=== PATIENT | female | born 1960 | race Caucasian/White ===

== ENCOUNTER → 2023-03-05 11:05 | Outpatient (CLI) | payer MEDICARE, OTHER, SELFPAY ==
--- NOTE | ~2023-03-05 | MR_ITS ---
MRI of the left shoulder Technique: Axial proton-density fat-sat images, coronal proton density fat-sat and T2 fat-sat images, and sagittal T1-weighted and T2 fat-sat images were acquired. Clinical History: Pain Findings: There is minimal AC joint degenerative change. Coracoclavicular, coracoacromial, and coraco humeral ligaments are intact. Supraspinatus and infraspinatus tendons are intact, without partial or full-thickness tear. Subscapul terence tendon is intact. Tendon of long head of the biceps is intact. No labral tear identified. Inferior glenohumeral ligament is intact. There is mild fluid distention of the subacromial/subdeltoi d bursa. No degenerative change or effusion of the glenohumeral joint. No muscle atrophy or edema. Impression: Mild subacromial/subdeltoid bursitis. No other significant findings. Reviewed, dictated and finalized at [facility]. Impression: Mild subacromial/subdeltoid bursitis. No other significant findings.
== END ==
PROVIDERS: PCP Family Medicine; Visit Provider Physician Assistant Surgical
DX: M25.512 Pain in left shoulder (principal); M75.52 Bursitis of left shoulder
CPT/HCPCS: 73221

== ENCOUNTER 2023-04-24 10:17 | Outpatient (CLI) | payer MEDICARE, OTHER, SELFPAY ==
--- NOTE | 2023-04-24 10:30 | ECG_ITS ---
Measurements Intervals [place] Rate: 69 P: 51 WV: 145 QRS: -33 QRSD: 90 T: 35 QT: 403 QTc: 433 Interpretive Statements SINUS RHYTHM MARKED LEFT AXIS DEVIATION [QRS AXIS < -30] NO PREVIOUS ECG AVAILABLE FOR COMPARISON Electronically Signed On 04-24-2023 14:13:31 CDT by Michel Vallejo M.D.
[2023-04-24 11:01] LABS: Anion Gap 6 mmol/L (8-16); Blood Urea Nitrogen 13 mg/dL (7-17); Calcium 9.4 mg/dL (8.4-10.2); Carbon Dioxide 34 mmol/L (22-30); Chloride 98 mmol/L (98-107); Estimated Glomerular Filt Rate > 60; Glucose 107 mg/dL (65-110); Potassium 3.5 mmol/L (3.4-5.0); Sodium 138 mmol/L (137-145)
== END 2023-04-24 10:18 | disposition home or self-care (01) ==
LOC: ANHSURGERY 10:23
PROVIDERS: Anesthesiology; PCP Family Medicine; Visit Provider Orthopaedic Surgery
DX: I10 Essential (primary) hypertension (principal); T50.2X5A Adverse effect of carbonic-anhydrase inhibitors, benzothiadiazides and other diuretics, initial encounter
CPT/HCPCS: 36415; 80048; 93005

== ENCOUNTER 2023-04-27 01:00 | Day surgery (SDC) | payer MEDICARE, OTHER, SELFPAY ==
[2023-04-20 15:41] VITALS: BMI 30.9
--- NOTE | 2023-04-20 15:49 | SUR.PREOP ---
Report to the Outpatient Waiting Room, entrance under the green pavilion located off [facility], at time _1000 on date _04/27/23 . Planned Procedure Time: __1200 . Time changes happen often and if your time is changed the preop area will call you the afternoon before. - You and your visitor will be asked to self-screen and do not enter if you have any COVID symptoms. - A mask is optional within the hospital at this time. Patients may have clear liquids (water, carbonated beverages, clear teas, apple juice) until 3 hours prior to surgery with a maximum of 20 ounces. - No food from midnight until time of surgery - Infants may have breast milk until 4 hours before surgery, formula 6 hours prior to surgery. - Children will be allowed to drink immediately following surgery. If applicable, please bring a bottle or sippy cup to assist with drinking. Juice, water, soda, and popsicles are readily available. For infants on formula, please bring formula the day of surgery. Pacifiers are allowed. Take the following medications with a SIP of water the morning of surgery: __AMLODIPINE DO NOT STOP ANY OF YOUR OTHER PRESCRIPTION MEDICATIONS PRIOR TO SURGERY ?EXCEPT THE FOLLOWING Medications to discontinue per physician ____VITAMINS Date to take last dose___04/24/23 Please no make-up, nail zimbabwean, hairspray, perfume, deodorant, or body powder the day of surgery. No jewelry (including any body piercings) or valuables the day of surgery, leave them at home. Please take a shower or bath the night before, or the morning of, surgery with an antibacterial soap. Wear comfortable, loose fitting clothing. Children are encouraged to wear pajamas. - Jewelry must be removed prior to entering the operating room. Rings and piercings that are not removed may be cut off. - The hospital will not accept responsibility for valuables. - Please leave all valuables, including medications, at home the day of surgery. If you are going home after surgery, a licensed test driver must drive you home. - NO public transportation without another adult if you receive anesthesia. - We recommend that an adult stay with you for 24 hours following discharge. - We also recommend that you do not drive, make important decision, drink alcoholic beverages, or take any drugs that were not prescribed by your health care provider for at least 24 hours after your discharge time. For Pediatric surgeries, we recommend two adults accompany the child home. Follow any additional instructions given to you from your surgeon. If you or anyone in your household have experienced Covid symptoms in the past week, please notify your surgeon or the nurse liaison at the phone number below for possible testing. Telephone instructions given to _SHAYNE BHAKTA and asked if any additional questions and then verbalized understanding. Patient advised to call surgeon office or pre surgery nurse liaison [phone] if any additional questions.
[2023-04-27] VITALS (10 sets, daily range): BP systolic 138–160; BP diastolic 68–85; PULSE 68–83; RESP 12–16; TEMP 36.1–36.2; O2SAT 95–100
[2023-04-27] MEDS: ACETAMINOPHEN 500 MG TABLET 1000 MG PO (10:10)
[2023-04-27] MEDS: LACTATED RINGERS 1,000 ML 30 ML IV CONT ×2 (10:16→14:34)
--- NOTE | 2023-04-27 11:48 | WPDANESEPPF ---
Anes - Initial Pre Proc Eval Procedure: Operation Date: 04/27/23 12:00 Proposed Procedures p Arthroscopic Left Shoulder Subacromial Decompression - Olu Barkley MD Date/Time: 04/27/23 11:48 Surgeon: Olu Barkley MD Pre Op Diagnosis: Lt Shoulder Impingement Synd Patient Data Age: 62 Gender: F Height: 1.5 m Weight: 68.5 kg Last Vital Signs Temp 36.1 C L 04/27/23 10:45 Pulse 69 04/27/23 10:45 Resp 16 04/27/23 10:45 BP 160/85 H 04/27/23 10:45 Pulse Ox 100 04/27/23 10:45 O2 Del Method Room Air 04/27/23 10:45 Allergies Allergy/AdvReac Type Severity Reaction Status Date / Time celecoxib [From Celebrex] Allergy Severe Anaphylaxis Verified 04/27/23 09:59 NSAIDS (Non-Steroidal Allergy Severe Anaphylaxis Verified 04/27/23 10:00 Anti-Inflamma Sulfa (Sulfonamide Allergy Severe Anaphylaxis Verified 04/27/23 10:00 Antibiotics) aloe Allergy Mild Rash Verified 04/20/23 15:13 methotrexate Allergy Mild Unknown Verified 04/20/23 15:13 vioxx Allergy Severe Anaphylaxis Uncoded 04/20/23 15:13 codine Allergy Mild Vomiting Uncoded 04/20/23 15:13 Home Medications Medication Instructions Recorded Confirmed Type amlodipine 5 mg tablet 5 mg PO DAILY 12/28/22 04/27/23 History azelastine 137 mcg (0.1 %) nasal 137 mcg intranasal DAILY 12/28/22 04/27/23 History spray aerosol cholecalciferol (vitamin D3) 10 10 mcg PO DAILY 12/28/22 04/27/23 History mcg (400 unit) capsule (Vitamin D3) ezetimibe 10 mg tablet 10 mg PO DAILY 12/28/22 04/27/23 History hydrochlorothiazide 25 mg tablet 25 mg PO DAILY 12/28/22 04/27/23 History letrozole 2.5 mg tablet 2.5 mg PO DAILY 12/28/22 04/27/23 History levocetirizine 2.5 mg/5 mL oral 2.5 mg PO QPM 12/28/22 04/27/23 History solution (Xyzal) loperamide 2 mg capsule 2 mg PO Q6H PRN Diarrhea 12/28/22 04/20/23 History omeprazole 20 mg capsule,delayed 20 mg PO DAILY 12/28/22 04/27/23 History release tramadol 37.5 mg-acetaminophen 325 1 tablet PO Q6H PRN Pain 12/28/22 04/27/23 History mg tablet vit A 300 mcg-C 200 mg-E 27 1 tablet PO DAILY 12/28/22 04/27/23 History mg-lutein 2 mg and minerals tablet ([facility] Plus Lutein) zoledronic acid 4 mg/5 mL See Rx Instructions .Route .COMPLEX 12/28/22 04/27/23 History intravenous solution minoxidil 2 % topical solution 1 ml topical BID 04/18/23 04/27/23 History Patient hx anesthesia problems: none Family hx anesthesia problems: none Results Review: All pre-operative results and documents have been reviewed as part of the pre-operative evaluation. [facility] Past Medical History Medical History Arthritis History of breast cancer Hyperlipemia Hypertension Hyperthyroidism IBS (irritable bowel syndrome) Osteoporosis Surgical History Surgical History H/O tubal ligation (~1987) H/O: (~1985) History of appendectomy (~1984) History of breast lump removal (~1991) History of mastectomy (~2019) History of surgical removal of ganglion cyst (~03/2018) History of tooth extraction Hx of cholecystectomy (~2021) Hx of prior ablation treatment (~2005) Hx of tonsillectomy (~1983) Status post Achilles tendon repair (~1999) right foot Family History Family History Sibling Diabetes mellitus Social History Social History Smoking status: Never smoker Alcohol intake: current Drinks per week: 1 Alcohol use details: 2 a month Substance use: never Lack of Transportation: No Lack of Food: Never True Current Housing: I Have Housing Concerned About Future Housing: No Difficulty Paying Gas/Electric Bills: No Difficulty Paying for Meds: No Currently Unemployed: No Education: High School Diploma/GED Difficulty w/ Childcare or Family Care: No
--- NOTE | 2023-04-27 11:53 | WPDHPUPDATE1 ---
History and Physical Update Update Date/Time: 04/27/23 11:53 History and Physical has been reviewed, including an updated exam of the patient. There are NO changes in the patient's condition. Risks, benefits, and alternatives have been discussed and questions answered. Patient agrees to proceed with procedure.
[2023-04-27] MEDS: ceFAZolin 2 GM/D5W 50 ML 2 GM/50 ML BAG IVPB (12:13)
--- NOTE | 2023-04-27 14:16 | P.OP_ITS ---
Procedure Note - Detailed Date of Procedure 04/27/23 Pre-op Diagnosis Lt Shoulder Impingement Synd Post-op Diagnosis Same Procedure Performed Arthroscopic limited subacromial debridement with subacromial decompression, left shoulder. Surgeon Olu Barkley MD Anesthesia General Findings Low grade bursal cuff tear with evidence of subacromial impingement. Description of Procedure Preoperative antibiotics were given. The shoulder was positioned in the beach chair position. The shoulder was prepped and draped in usual sterile fashion. Standard posterior and anterior arthroscopic portals were established. Inflows obtaining the saline pump. The glenohumeral joint appeared normal although there was some constitutional laxity with a positive drive-through sign. Labrum and articular cartilage were normal. The biceps and superior labrum were normal. The subscapularis was very healthy. The supraspinatus also appeared normal from the articular side. Attention was turned to the subacromial space. The bursa was somewhat thickened with string like thickening. There was low- grade partial-thickness bursal tearing of the supraspinatus. There was impingement and fraying of the undersurface of the anterolateral acromion. The soft tissue into the acromion was removed the bursa was excised. The anterolateral bony acromion was smoothed smoothed and flattened with the arthroscopic bur. The arthroscopic instruments were removed. The wounds were closed with interrupted 4-0 Monocryl suture followed by Steri-Strips. A sterile dressing and sling were applied. The patient was extubated and brought to the recovery room in stable condition. There were no complications. Estimated Blood Loss 5 Complications No immediate complications Condition Stable Disposition PACU [facility] Billing Surgery - Charge Forward: Surgery Billing
[2023-04-27] MEDS: fentaNYL CITRATE INJ (*CRX) 100 MCG/2 ML VIAL 25 MCG IV PUSH ×4 (14:30→15:32)
[2023-04-27] MEDS: oxyCODONE HCL (*CRX) 5 MG TAB IR PO (15:00)
== END 2023-04-27 16:25 | disposition home or self-care (01) ==
PROVIDERS: PCP Family Medicine; Visit Provider Orthopaedic Surgery
PROC: (CPT 29805; principal; 2023-04-27 12:00)
DX: M75.42 Impingement syndrome of left shoulder (principal); M75.102 Unspecified rotator cuff tear or rupture of left shoulder, not specified as traumatic; I10 Essential (primary) hypertension; E78.5 Hyperlipidemia, unspecified; M81.0 Age-related osteoporosis without current pathological fracture; Z79.811 Long term (current) use of aromatase inhibitors; Z85.3 Personal history of malignant neoplasm of breast
CPT/HCPCS: 29822; A4565; A9270; J0171; J0690; J1100; J1170; J2250; J2405; J2704; J2710; J3010; J7120